=== PATIENT | female | born 1955 | race Caucasian/White ===

== ENCOUNTER 2017-08-12 07:19 | Day surgery (SDC) | payer OTHER ==
[~2017-08-12] VITALS: Ht 160 cm; Wt 55.5 kg
[~2017-08-12 07:19] MED LIST: AMOCLA875 PO; ESTROGEN; LISI5 PO; METF500 PO; OXYACE5T PO; PRO TOP; PROG100 PO; [UNRECOGNIZED DRUG - OTHER] TOP
== END 2017-08-12 09:50 | disposition home or self-care (01) ==
LOC: ORSCSDS 07:19
PROVIDERS: Obstetrics & Gynecology
PROC: 0UDB8ZX Extraction of Endometrium, Via Natural or Artificial Opening Endoscopic, Diagnostic (ICD-10-PCS; principal; 2017-08-12 08:30)
DX: N95.0 Postmenopausal bleeding (principal); N85.00 Endometrial hyperplasia, unspecified; I10 Essential (primary) hypertension; E11.9 Type 2 diabetes mellitus without complications; Z79.84 Long term (current) use of oral hypoglycemic drugs; Z79.899 Other long term (current) drug therapy
CPT/HCPCS: 82947; 88305; J0690; J2250; J2370; J3010; J7120